=== PATIENT | male | born 2005 | race Caucasian/White ===

== ENCOUNTER 2023-04-21 10:51 | Emergency (ER) | payer BC, SELFPAY ==
[2023-04-21 11:02] VITALS: BP 134/81; PULSE 70; RESP 18; TEMP 36.7; O2SAT 99; BMI 19.0
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
[2023-04-21] MEDS: TETANUS/DIPHTH/PERTUSSIS 0.5 ML SYRINGE IM (11:56)
--- OUTSIDE RECORDS SUMMARY | 2023-04-21 11:59 | XMS_ITS | Continuity of Care Document ---
Author Name Unknown Organization [facility] Address [address] [place] [address] Phone [phone] Social History Type Date Description Comments Sex Unknown Allergies and adverse reactions Active Allergies Criticality Reaction Severity Comments Date Zithromax Unable to assess criticality Rash Mild 07/06/2020 Medications Active Medications SIG Qnty Indications Ordering Provider Date Folic Csxg8iv Tablets Unknown 05/28/2020 [facility] [id number] ([address]) Capsules Unknown 05/26/2020 Omeprazole Ycruyaxlg59.6(20Base ) mg Capsules DR Unknown 05/20/2020 [facility] Vitamin B-[id number] Tablets Sub Unknown 04/16/2020 [facility] Calcium Soft Yksmw922-31.5-40mg-m cg Chewtabs Unknown 04/16/2020 Prazosin HCL2mg Capsules 2 capsules at bedtime 180caps Guillermo Dior MD 04/16/2020 Vital Signs Date Vital Result Comment 05/20/2020 12:00am Height 70.50 inches 5'10.50 Weight 193.00 lb BMI (Body Mass Index) 27.3 kg/m2 BP Systolic 136 mmHg BP Diastolic 90 mmHg Heart Rate 67 /min Results Test Acquired Date Facility Test Result H/L Range N ote Acth, Plasma 05/26/2020 [facility] Plas-mCnc 6 pg/mL 9-57 Cortisol, Total, LC/MS 05/25/2020 [facility] Cortis SerPl-mCnc 3.4 g /dL 2.6-29.8 Albumin SerPl-mCnc 4.8 g/dL 3.6-5.1 Testost SerPl-mCnc 315 ng/dL < Or = 1000 [facility] Bioavail SerPl-mCnc 143.7 ng/dL 8.0-210 .0 Testost Free SerPl-mCnc 65.7 pg/mL 4.0-100.0 SHBG SerPl-sCnc 16 nmol/L 20-87 FSH SerPl-aCnc 3.3 mIU/mL LDH SerPl P to L-cCnc 199 U/L 110-230 Prolactin SerPl-mCnc 9.6 ng/mL T3 SerPl-mCnc 147 ng/dL 86-192 T4 Free SerPl-mCnc 1.4 ng/dL 0.8-1.4 TSH SerPl-aCnc 2.08 mIU/L 0.50-4.30 Igf 1, LC/MS 05/24/2020 [facility] Igf-I Z-score SerPl -1.2 SD -2.0 - +2.0 Igf-I SerPl-mCnc 275 ng/mL 207-576 Vitamin K 04/22/2020 [facility] Phytonadione SerPl-mCnc 102 pg/mL 130-1500 Vitamin B1 (Thiamine), Blood, LC/MS/MS 04/21/2020 [facility] Vit B1 Bld-sCnc 111 nmol/L 78-185 Vit B6 SerPl-mCnc 14.1 ng/mL 3.0-35.0 Vit C SerPl-mCnc 0.4 mg/dL 0.2-2.1 Comprehensive Metabolic Panel 04/21/2020 Qu est Alt SerPl-cCnc 10 U/L 8-46 Ast SerPl-cCnc 10 U/L 12-32 Alp SerPl-cCnc 66 U/L 46-169 Bilirub SerPl-mCnc 0.6 mg/dL 0.2-1.1 Albumin/Glob SerPl 2.0 (calc) 1.0-2.5 Globulin Ser Calc-mCnc 2.5 g/dL(calc) 2.1-3.5 Albumin SerPl-mCnc 5.1 g/dL 3.6-5.1 Prot SerPl-mCnc 7.6 g/dL 6.3-8.2 Calcium SerPl-mCnc 9.8 mg/dL 8.9-10.4 Co2 SerPl-sCnc 25 mmol/L 20-32 Chloride SerPl-sCnc 102 mmol/L 98-110 Potassium SerPl-sCnc 4.1 mmol/L 3.8-5.1 Sodium SerPl-sCnc 139 mmol/L 135-146 Creat SerPl-mCnc 0.97 mg/dL 0.60-1.20 BUN SerPl-mCnc 14 mg/dL 7-20 Glucose SerPl-mCnc 86 mg/dL 65-99 Iodine SerPl-mCnc 75 g /L 52-109 25(Oh)D3 SerPl-mCnc 97 ng/mL 30-100 T3Free SerPl-mCnc 4.4 pg/mL 3.0-4.7 Ferritin SerPl-mCnc 156 ng/mL 11-172 WBC # Bld Auto 11.2 Thousand/uL 4.5-13.0 Basophils/leuk NFr Bld Auto 0.3 % Eosinophil/leuk NFr Bld Auto 1.6 % Monocytes/leuk NFr Bld Auto 7.0 % Lymphocytes/leuk NFr Bld Auto 31.4 % Neutrophils/leuk NFr Bld Auto 59.7 % Basophils # Bld Auto 34 cells/uL 0-200 Eosinophil # Bld Auto 179 cells/uL 15-500 Monocytes # Bld Auto 784 cells/uL 200-900 Lymphocytes # Bld Auto 3517 cells/uL 3668-9275 Neutrophils # Bld Auto 6686 cells/uL 9780-9974 PMV Bld Dhaval-Roosevelt 9.8 fL 7.5-12.5 Platelet # Bld Auto 289 Thousand/uL 140-400 RDW RBC Auto-Rto 12.6 % 11.0-15.0 MCHC RBC Auto-mCnc 33.8 g/dL 31.0-36.0 MCH RBC Qn Auto 29.1 pg 25.0-35.0 MCV RBC Auto 86.2 fL 78.0-98.0 Hct VFr Bld Auto 46.2 % 36.0-49.0 Hgb Bld-mCnc 15.6 g/dL 12.0-16.9 RBC # Bld Auto 5.36 Million/uL 4.10-5.70 Iron SerPl-mCnc 53 g /dL 27-164 Iron Satn MFr SerPl 17 %(calc) 16-48 Tibc SerPl-mCnc 303 mcg/dL(calc) 271-448 T4 Free SerPl-mCnc 1.5 ng/dL 0.8-1.4 TSH SerPl-aCnc 3.76 mIU/L 0.50-4.30 Zinc SerPl-mCnc 71 g /dL 46-130 Comprehensive Metabolic Panel 04/21/2020 Qu est Blasts/leuk NFr Bld Manual 0.3 % Basophils/leuk NFr Bld Auto 1.6 % Eosinophil/leuk NFr Bld Auto 7.0 % Variant Lymphs/leuk NFr Bld 31.4 % 0-10 Neuts Band/leuk NFr Bld Manual 59.7 % Blasts # Bld 34 cells/uL 0 Basophils # Bld Auto 179 cells/uL 0-200 Eosinophil # Bld Auto 784 cells/uL 15-500 Monocytes # Bld Auto 3517 cells/uL 200-900 Neuts Band # Bld 6686 cells/uL 0-750 Myelocytes # Bld 9.8 fL 0 PMV Bld Dhaval-Roosevelt 289 Thousand/uL 7.5-12.5 Platelet # Bld Auto 12.6 % 140-400 RDW RBC Auto-Rto 33.8 g/dL 11.0-15.0 MCHC RBC Auto-mCnc 29.1 pg 31.0-36.0 MCH RBC Qn Auto 86.2 fL 25.0-35.0 MCV RBC Auto 46.2 % 78.0-98.0 Hct VFr Bld Auto 15.6 g/dL 36.0-49.0 Hgb Bld-mCnc 5.36 Million/uL 12.0-16.9 RBC # Bld Auto 53 g /dL 4.10-5.70 Iron SerPl-mCnc 17 %(calc) 27-164 Iron Satn MFr SerPl 303 mcg/dL(calc) 16-48 Tibc SerPl-mCnc 1.5 ng/dL 271-448 T4 Free SerPl-mCnc 3.76 mIU/L 0.8-1.4 TSH SerPl-aCnc 71 g /dL 0.50-4.30 Vitamin A (Retinol) 04/20/2020 [facility] Vit A SerPl-mCnc 65 g /dL 26-72 A-Tocopherol Vit E SerPl-mCnc 9.1 mg/L 3.7-12 .4 Vitamin B12 04/17/2020 [facility] Vit B12 SerPl-mCnc 553 pg/mL 260-935 Folate SerPl-mCnc 8.1 ng/mL >8.0 Magnesium 04/17/2020 [facility] Magnesium SerPl-mCnc 2.2 mg/dL 1.5-2.5 Procedures Date Code Description Status 05/20/2020 BALFRWD Balance Forward from [employer] Completed 05/20/2020 34951 Additional suppl ies, materials, staff time over and above usual Completed 04/16/2020 [id number] Additional suppl ies, materials, staff time over and above usual Completed 04/16/2020 [id number] Collection Of Venous Blood B y Venipuncture Completed Medical Devices Description No Information Available Encounters Description No Information Available Assessments Description No Information Available Plan of Treatment No Information Available Functional Status Description No Information Available Mental Status Description No Information Available Referrals Refer to Reason for Referral Status Appt Loki Martinez MD Created 0 [id number] [facility] [phone]
--- OUTSIDE RECORDS SUMMARY | 2023-04-21 12:00 | XMS_ITS | Continuity of Care Document ---
Author Name Unknown Organization [facility] Address [address] [place] [phone] Phone [phone] Social History Type Date Description Comments Sex Unknown Allergies and adverse reactions Active Allergies Criticality Reaction Severity Comments Date Zithromax Unable to assess criticality Rash Mild 07/06/2020 Medications Active Medications SIG Qnty Indications Ordering Provider Date Folic Wysx3hz Tablets Unknown 05/28/2020 [facility] [id number] ([address]) Capsules Unknown 05/26/2020 Omeprazole Gfxbytlen13.6(20Base ) mg Capsules DR Unknown 05/20/2020 [facility] Vitamin B-[id number] Tablets Sub Unknown 04/16/2020 [facility] Calcium Soft Ktkhx544-61.5-40mg-m cg Chewtabs Unknown 04/16/2020 Prazosin HCL2mg Capsules [...] 200-900 Lymphocytes # Bld Auto 3517 cells/uL 0574-0845 Neutrophils # Bld Auto 6686 cells/uL 7796-5745 PMV Bld Dhaval-Roosevelt 9.8 fL 7.5-12.5 Platelet [...] BALFRWD Balance Forward from [employer] Completed 05/20/2020 [id number] Additional suppl ies, materials, staff time over and above usual Completed 04/16/2020 75302 Additional suppl ies, materials, staff time over and above usual Completed 04/16/2020 77133 Collection Of Venous Blood B y Venipuncture Completed Medical Devices Description No Information Available Encounters Description No Information Available Assessments Description No Information Available Plan of Treatment No Information Available Functional Status Description No Information Available Mental Status Description No Information Available Referrals Refer to Reason for Referral Status Appt Loki Martinez MD Created 0 [address] [facility] [phone]
[2023-04-21 12:54] LABS: PCR FLU A Negative PCR FLU A (Negative); PCR FLU B Negative PCR FLU B (Negative)
[2023-04-21 12:58] LABS: SARS PCR* Negative SARS-CoV-2 (Negative)
== END 2023-04-21 12:06 | disposition home or self-care (01) ==
PROVIDERS: Emergency Provider Emergency Medicine Emergency Medical Services
DX: S01.01XA Laceration without foreign body of scalp, initial encounter (principal); W22.8XXA Striking against or struck by other objects, initial encounter
CPT/HCPCS: 12001; 87631; 90471; 90715; 99283; 99284